=== PATIENT | female | born 1990 | race Hispanic/Latino ===

== ENCOUNTER 2024-12-23 21:44 | Emergency (ER) | payer BC, SELFPAY ==
[2024-12-23 21:46] VITALS: BP 155/94
[2024-12-23 22:52] VITALS: BMI 34.1
[2024-12-23] MEDS: MOTRIN 600 MG PO (23:04)
--- NOTE | 2024-12-24 00:14 | ED.GENMED ---
History of Present Illness
General
Chief Complaint: Musculo-Skeletal Complaint
Source: patient
Exam Limitations: none
Time Seen by Provider: 12/24/24 00:13
Nursing documentation reviewed up to this point in time: agreed with
History of Present Illness
History of Present Illness:
Note:
CHIEF COMPLAINT(S)
Ankle pain following a fall.
HISTORY OF PRESENT ILLNESS
The patient is a 34-year-old female with no pmh presents to the ER today following a fall where she twisted her ankle stepping off a curb. Patient reports that she twisted and fell. She endured some abrasions as well. She did not hit her head when
she fell and did not loose consciousness. She denies any pain in her upper extremities. She currently reports significant pain in the ankle that started after the incident, making it difficult to bear weight. The patient describes acute swelling
observed within the past 10 minutes and noted the appearance of bruising approximately 40 minutes ago to the dorsum of the left lateral foot. The pain has progressed, causing difficulty in ambulating. She has not taken anything for the pain.
PHYSICAL EXAM
- Nursing notes reviewed and vital signs reviewed.
General: Patient is well appearing and in no acute distress; non-toxic
Skin: Warm and dry, no rashes or lesions
Head: Normocephalic, atraumatic
Eyes: Sclera non-icteric. EOMs intact.
Cardiac: Regular rate
Peripheral Vascular: 2+ DP and PT pulses bilaterally
Pulm: Normal respiratory effort
Musculoskeletal: Full range of motion of bilateral lower extremities including left ankle joint; No ligament laxity, pain with varus stress negative anterior drawer no proximal fibula tenderness
Neuro: CN II-XII intact, no focal neurologic deficits. Sensation intact.
Psychiatric: Appropriate mood and affect.
PROBLEM LIST
Acute:
- Right ankle sprain
Chronic:
- None mentioned.
PLAN
- Immobilize the ankle with either a boot or air splint to aid the healing process for about a week.
- Issue crutches to assist with partial weight-bearing as tolerated.
- Recommend elevation of the leg at home to reduce swelling.
- Prescribe nonsteroidal anti-inflammatory drugs (NSAIDs) such as Ibuprofen for pain management.
- Advise follow-up with an orthopedic surgeon if symptoms do not improve, including persistent pain and swelling. Consider an MRI if symptoms worsen.
- Continue monitoring symptoms at home, and contact the orthopedist if necessary for further investigation.
DIFFERENTIAL DIAGNOSIS
The Differential Diagnosis includes, in no particular order and is not limited to:
1. Ankle fracture
2. Ligamentous ankle sprain
3. Tendon tear or rupture
4. Ankle dislocation
5. Peroneal tendon injury
6. Bone contusion
7. Achilles tendonitis
8. Tarsal tunnel syndrome
9. Rheumatoid arthritis exacerbation
10. Osteoarthritis flare
MDM/DISPO
The patient is a 34-year-old female with no pmh presents to the ER today following a fall where she twisted her ankle stepping off a curb. She denies any other injuries. History as above. History and physical exam consistent with ankle sprain.
X-rays show no acute fracture or dislocation. She is neurovascularly intact. Discussed immobilization, non-weight bearing, ortho follow up, RICE. Patient stable for discharge.
Past History
Past History
ED Past Medical History: Psychiatric (Depression), Other (trouble breathing when takes sulfa drugs) and Other (Skin abscesses, MRSA positive)
ED Past Surgical History: None
Social History
Tobacco: Non-smoker
Alcohol: Occasional
Personal: Single
Living: with family
Family History
Family History: Negative Diabetes or Early CAD
Review of Systems
Review of Systems
All Other Systems: ROS reviewed and negative except as documented in HPI and ROS
Phy Exam
Physical Exam
Physical Exam:
see hpi
Course
Orders/Labs/Results
Orders:
Orders
12/23/24 23:02
Ibuprofen [Motrin] 600 mg .ROUTE .STK-MED ONE
12/23/24 23:03
Ibuprofen [Motrin] 600 mg PO NOW STA
12/23/24 23:05
Ankle, left 3 view CR [CR Ankle - Left Min 3 Views ] Urgent
Comment:
Reason For Exam: injury/pain
12/24/24 00:26
CR Foot - Left Min 3 Views Urgent
Reason For Exam: distal 5th metatarsal pain and swelling
12/24/24 00:29
Acetaminophen [Tylenol] 1,000 mg PO NOW STA
12/24/24 01:28
boot [Ortho Boot Left- Treatment] ONCE
Short or tall?: Short
12/24/24 01:29
Crutches-Treatment ONCE
Vital Signs
Initial and Last Documented VS:
Initial Vital Signs
Temp Pulse Resp BP Pulse Ox
98 F 91 16 155/94 99
12/23/24 21:46 12/23/24 21:46 12/23/24 21:46 12/23/24 21:46 12/23/24 21:46
Last Documented Vital Signs
Temp Pulse Resp BP Pulse Ox
98 F 67 18 121/74 100
12/23/24 21:46 12/24/24 02:05 12/24/24 02:05 12/24/24 01:09 12/24/24 02:05
*Pulse Oximetry
SaO2: 99
Oxygen Mode of Delivery: Room air
Patient hypoxic: no
*Critical Care Note
Total Time (30-74mins, 75-104mins- exclusive of procedures): Not Applicable
ED Attending Note
-
Portions of this chart may have been created with voice recognition software.� Occasional wrong word or��sound alike� substitutions may have occurred due to the inherent limitations of voice recognition software.
Discharge Plan
Departure
Patient Disposition: Home (Routine Discharge)
Date of Disposition: 12/24/24
Time of Disposition: 01:57
Patient with high blood pressure during this ER visit?: Yes
Condition: Good
Discharge Problem:
Left ankle sprain, Contusion of foot
Instructions: Ankle sprain - ED discharge instructions, Foot sprain - ED discharge instructions, BLOOD PRESSURE
Prescriptions:
No Action
ferrous sulfate [Feosol] 200 MG tablet
200 mg PO DAILY
vit 96-iron fum-folic 1 EACH tablet
1 ea PO DAILY
acetaminophen 325 MG tablet
650 mg PO Q4HPRN PRN (Reason: mild pain) 0RF
ibuprofen 600 MG tablet
600 mg PO Q4HPRN PRN (Reason: cramps) 0RF
Referrals:
SURYA ALEJANDRO DO [Family Provider, Internal Medicine]
Yossi Pena DPM [Active, Podiatry] - Call in 1-3 days for appt
Activity Restrictions/Additional Instructions:
Please use your crutches when ambulating and avoid weight bearing for the next few days. As your injury starts to heal, and you are straining feeling better, you can attempt to weight-bear. Please keep the ankle elevated at home to alleviate
swelling, you can use acetaminophen and Advil as needed for your symptoms. You may also apply ice for 15 to 20 minutes every 2-3 hours.
Please call attached number to follow-up with orthopedics.
PLEASE RETURN TO EMERGENCY DEPARTMENT SHOULD YOU DEVELOP ANY ACUTE WORSENING OF YOUR SYMPTOMS, LOSS OF SENSATION IN YOUR ANKLE OR FOOT, ANY NEW INJURIES, OR ANY OTHER SIGNS OR SYMPTOMS WORRISOME TO YOU.
Interventions
Interventions:
*Risk Screen - Suicide Last Done: 12/23/24 21:46
*General Assessment Last Done: 12/23/24 22:52
*Neglect/Abuse Screening Last Done: 12/23/24 21:46
*ED- Fall Risk Assessment Last Done: 12/23/24 22:52
*ED COVID-19 Vaccine History Last Done: 12/23/24 22:52
*Nursing Disposition Last Done: 12/24/24 02:05
ED-Musculoskeletal Assessment Last Done: 12/24/24 02:11
Discharge Date and Time
Discharge Date/Time: 12/24/24 02:05
Print Language: [id number]
[2024-12-24] MEDS: TYLENOL 1000 MG PO (00:38)
[2024-12-24 01:09] VITALS: BP 121/74
== END 2024-12-24 02:05 | disposition home or self-care (01) ==
LOC: EMR 21:44
PROVIDERS: EMERGENCY PHYSICIAN Emergency Medicine; FAMILY PHYSICIAN Internal Medicine
DX: S93.402A Sprain of unspecified ligament of left ankle, initial encounter (principal); S90.32XA Contusion of left foot, initial encounter; S80.212A Abrasion, left knee, initial encounter; S80.211A Abrasion, right knee, initial encounter; S90.511A Abrasion, right ankle, initial encounter; X50.1XXA Overexertion from prolonged static or awkward postures, initial encounter; W10.1XXA Fall (on)(from) sidewalk curb, initial encounter; R03.0 Elevated blood-pressure reading, without diagnosis of hypertension; F32.A Depression, unspecified; Z86.14 Personal history of Methicillin resistant Staphylococcus aureus infection; Z88.2 Allergy status to sulfonamides; Z91.048 Other nonmedicinal substance allergy status
CPT/HCPCS: 99283; 29515; 73610; 73630